=== PATIENT | female | born 1995 | race Hispanic/Latino ===

== ENCOUNTER 2019-02-21 08:14 | Emergency (ER) | payer BC ==
[2019-02-21] MEDS ORDERED: ONDANSETRON ODT 4 MG TAB ONE (08:25)
[2019-02-21 08:38] LABS: APPEARANCE,URINE CLEAR (CLEAR); BILIRUBIN,URINE NEGATIVE (NEGATIVE); COLOR,URINE YELLOW (YELLOW); GLUCOSE, URINE (UA) NEGATIVE (NEGATIVE); KETONES,URINE 15 mg/dL (NEGATIVE); LEUKOCYTE ESTERASE ,URINE NEGATIVE (NEGATIVE); NITRATE,URINE NEGATIVE (NEGATIVE); OCCULT BLOOD,URINE NEGATIVE (NEGATIVE); PROTEIN,URINE 30 mg/dL (NEGATIVE); UROBILINOGEN,URINE 0.2 mg/dL (0.2-1.0)
[2019-02-21] MEDS ORDERED: IBUPROFEN 400 MG TABLET ONE (08:50)
[2019-02-21 08:54] LABS: HCG,QUAL RESULT NEGATIVE (NEGATIVE)
[2019-02-21 08:56] LABS: BACTERIA,URINE Rare /HPF (None Seen); MUCUS,URINE Many LPF (None Seen); SQUAMOUS EPITHELIAL CELL,UR Rare /HPF (0-2); WBC,URINE 0-1 /HPF (0-1)
[2019-02-21 10:35] LABS: BASOPHILS % (AUTO) 0.6 % (0.0-5.0); HEMATOCRIT 36.7 % (36-48); MEAN CORPUSCULAR HEMOGLOBIN 27.2 pg (27.0-33.0); MEAN CORPUSCULAR VOLUME 82.5 fL (80-100); MONOCYTES % (AUTO) 8.1 % (3.0-13.0); NEUTROPHILS % (AUTO) 71.3 % (40.0-77.0); PLATELET COUNT (AUTO) 158 K/uL (130-400); RED BLOOD CELL COUNT(AUTO) 4.46 MIL/uL (4.00-5.50); RED CELL DISTRIBUTION WIDTH 13.7 % (11.0-15.5); WHITE BLOOD COUNT (AUTO) 3.5 K/uL (4.8-10.8)
[2019-02-21 10:41] LABS: CREATININE 0.9 mg/dL (0.5-1.5); POTASSIUM 3.7 mmol/L (3.5-5.1)
[2019-02-21 10:43] LABS: ALBUMIN 3.8 g/dL (3.5-5.0)
[2019-02-21 10:46] LABS: PARTIAL THROMBOPLASTIN TIME 31.7 SEC (26.3-35.5); PROTHROMBIN TIME 10.5 SEC (9.6-11.6)
[2019-02-21 11:01] LABS: BILIRUBIN,TOTAL 0.3 mg/dL (0.2-1.0); TOTAL PROTEIN, SERUM 8.2 g/dL (6.0-8.3)
[2019-02-21] MEDS ORDERED: CEFTRIAXONE SODIUM 1 GM ONE (11:04)
== END 2019-02-21 13:57 | disposition home or self-care (01) ==
LOC: EDH 08:14
DX: R11.2 Nausea with vomiting, unspecified (principal); R50.9 Fever, unspecified; M79.10 Myalgia, unspecified site
CPT/HCPCS: 36415; 71045; 80053; 81001; 81025; 83605; 85025; 85610; 85730; 86708; 87040; 87804 ×2; 96361; 96374; 99285; J0696